=== PATIENT | female | born 1950 | race Caucasian/White ===

== ENCOUNTER → 2019-08-30 08:30 | Outpatient (CLI) | payer OTHER, SELFPAY ==
--- NOTE | 2019-08-30 | DI.MG.S_ITS ---
BILATERAL DIGITAL DIAGNOSTIC MAMMOGRAM 3D/2D: 08/30/2019 CLINICAL: Mass of left axilla. Comparison is made to exams dated: 09/02/2016 mammogram, 06/24/2014 mammogram, and 06/13/2013 mammogram - [facility]. There are scattered fibroglandular elements in both breasts. No significant masses, calcifications, or other findings are seen in either breast. IMPRESSION: INCOMPLETE: NEEDS ADDITIONAL IMAGING EVALUATION There is no abnormality seen in the left axilla to correspond with the palpable abnormality in the left axilla, however, ultrasound is recommended. This exam was interpreted at Station ID: [id number]. NOTE: For mammograms, a report in lay terms will be sent to the patient. Approximately 15% of breast malignancies will not be visualized mammographically. In the management of a palpable breast mass, a negative mammogram must not discourage biopsy of a clinically suspicious lesion. Electronically Signed By: Pascual [email or web address]/ignacio:08/30/2019 09:20:10 ACR BI-RADS Category 0: Incomplete [id number]
--- NOTE | 2019-08-30 | DI.US.S_ITS ---
ULTRASOUND OF LEFT AXILLA: 08/30/2019 CLINICAL: Palpable left axilla lump. Comparison is made to exams dated: 08/30/2019 mammogram - [facility], 09/02/2016 mammogram, and 06/24/2014 mammogram - [facility]. Color flow and real-time ultrasound of the left axilla were performed on the areas of interest. There is a 0.8 cm x 0.7 cm normal appearing lymph node in the left axilla. This lymph node is of mixed echogenicity with a fatty hilum. No abnormal cortical thickening. This correlates as palpated. Color flow imaging demonstrates that there is no increase in vascularity. No other solid or cystic mass identified in the area of palpable abnormality. IMPRESSION: BENIGN There is no sonographic evidence of malignancy. The 0.8 cm x 0.7 cm lymph node in the area of palpable abnormality appears benign. No other mass identified in this region. Clinical follow up of palpable finding is recommended. A 1 year screening mammogram is recommended. This exam was interpreted at Station ID: [id number]. Electronically Signed By: Pascual Aguilar M.D. [email or web address]/:08/30/2019 09:34:40 letter sent: Clinical Evaluation Ultrasound BI-RADS: 2 Benign
== END ==
PROVIDERS: Family Provider Family Medicine; PCP Family Medicine; Referring Provider Nurse Practitioner Family; Visit Provider Nurse Practitioner Family
DX: R92.8 Other abnormal and inconclusive findings on diagnostic imaging of breast (principal); N63.32 Unspecified lump in axillary tail of the left breast
CPT/HCPCS: 76882; 77066; G0279

== ENCOUNTER → 2020-12-03 10:55 | Outpatient (CLI) | payer OTHER, SELFPAY | PROVIDERS: Family Provider Family Medicine; PCP Family Medicine; Visit Provider Family Medicine | DX: M27.2 Inflammatory conditions of jaws (principal); L59.8 Other specified disorders of the skin and subcutaneous tissue related to radiation; Z85.21 Personal history of malignant neoplasm of larynx | CPT/HCPCS: 99204; 99212 ==

== ENCOUNTER → 2022-10-14 07:38 | Outpatient (CLI) | payer OTHER, SELFPAY ==
--- NOTE | 2022-10-14 | DI.NM.S_ITS ---
PROCEDURE: NM BONE SCAN WHOLE BODY RADIOPHARMACEUTICAL: 21.3 mCi Tc-99m MDP IV. INDICATIONS: Other benign neuroendocrine tumors TECHNIQUE: Delayed whole-body scintigrams were obtained approximately 3-4 hours after intravenous injection of radiotracer. Anterior and posterior views were acquired from vertex to feet. Additional left and right oblique views of the thoracic were obtained. COMPARISON: [facility], , CT SOFT TISSUE NECK WITH CONTRAST, 07/16/2020, 8:50. [facility], CT THORAX WITH CONTRAST, 08/12/2020, 9:03. FINDINGS: No lesions are identified in skull, sternum, clavicles, scapulae, ribs, bony pelvis, and visualized shafts of the long bones. There are foci of increased uptake in cervical, thoracic and lumbar spine most likely secondary to degenerative disc and facet disease; early metastasis to spine could be obscured by degenerative changes. There are foci of increased periarticular activity involving shoulders, sternoclavicular joints, elbows, wrists, hands, hips, SI joints, knees, ankles and feet, compatible with degenerative/arthritic changes. IMPRESSION: 1. No definitive scintigraphic findings to suggest osseous metastases. Dictated by: Mimi Martinez M.D. on 10/14/2022 at 13:39 Approved by: Mimi Martinez M.D. on 10/14/2022 at 18:45
== END ==
PROVIDERS: Family Provider Family Medicine; PCP Nurse Practitioner Family; Referring Provider Internal Medicine; Visit Provider Internal Medicine
DX: D3A.8 Other benign neuroendocrine tumors (principal)
CPT/HCPCS: 78306; A9503

== ENCOUNTER → 2023-09-12 15:26 | Outpatient (CLI) | payer OTHER, SELFPAY ==
--- NOTE | 2023-09-12 15:48 | DI.MRI.S_ITS ---
PROCEDURE: MR HEAD/BRAIN WO/W CON INDICATIONS: Lung cancer TECHNIQUE: Noncontrast axial T1 spin echo, axial T2 fast spin echo, sagittal and axial FLAIR, coronal T2 fast spin echo, axial gradient echo, axial diffusion and ADC through the brain. After the administration of contrast, axial and coronal and sagittal T1 spin echo with fat saturation through the brain. COMPARISON: None. FINDINGS: Image quality: Diagnostic, with note made of motion artifact. CSF spaces: Basal cisterns are patent. No extra-axial fluid collections. Ventricles are normal in size and shape. Brain: No midline shift. No intracranial bleeds or masses. No abnormal intracranial enhancement. There is cerebral volume loss for age. There is periventricular white matter chronic small vessel ischemic change. The brainstem appears normal. Diffusion-weighted images demonstrate no acute infarct. No chronic ischemic insults. Normal intravascular flow voids are present. Note is made of an empty sella with the pituitary tissue flattened along the floor of the sella turcica. 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 Skull and face: Calvarial marrow is normal in signal. Orbits appear normal. Sinuses: Sinuses and mastoids appear clear. IMPRESSION: No masses or abnormal enhancement can be seen. Dictated by: Artie Barajas M.D. on 09/13/2023 at 10:16 Approved by: Artie Barajas M.D. on 09/13/2023 at 10:17
== END ==
PROVIDERS: Family Provider Family Medicine; PCP Nurse Practitioner Family; Referring Provider Internal Medicine; Visit Provider Internal Medicine
DX: C7A.1 Malignant poorly differentiated neuroendocrine tumors (principal); C84.09 Mycosis fungoides, extranodal and solid organ sites
CPT/HCPCS: 70553; A9579